=== PATIENT | male | born 1975 | race American Indian/Alaskan Native ===

== ENCOUNTER 2024-04-02 14:53 | Emergency (ER) | payer OTHER ==
[2024-04-02 15:28] LABS: BASOPHILS ABSOLUTE AUTO 0.1 K/mm3 (0.0-0.2); BASOPHILS PERCENT AUTO 0.8 % (0.0-1.0); EOSINOPHILS ABSOLUTE AUTO 0.5 K/mm3 (0.0-0.4); EOSINOPHILS PERCENT AUTO 6.7 % (0.0-6.0); HEMATOCRIT 38.7 % (42.0-52.0); HEMOGLOBIN 13.1 gm/dl (14.0-18.0); IMMATURE GRAN ABSOLUTE AUTO 0.01 K/mm3 (0.00-0.05); IMMATURE GRAN PERCENT AUTO 0.1 % (0.0-0.4); LYMPHOCYTES ABSOLUTE AUTO 2.2 K/mm3 (1.0-4.8); LYMPHOCYTES PERCENT AUTO 29.7 % (24.0-44.0); MEAN CORPUSCULAR HEMOGLOBIN 31.3 pg (28.0-32.0); MEAN CORPUSCULAR HGB CONC 33.9 g/dl (32.0-36.0); MEAN CORPUSCULAR VOLUME 92.6 fl (83.0-99.0); MEAN PLATELET VOLUME 9.9 fl (9.4-12.4); MONOCYTES ABSOLUTE AUTO 0.5 K/mm3 (0.0-0.8); MONOCYTES PERCENT AUTO 6.8 % (0.0-8.0); NEUTROPHILS ABSOLUTE AUTO 4.1 K/mm3 (1.8-7.7); NEUTROPHILS PERCENT AUTO 55.9 % (41.0-71.0); PLATELET COUNT,PLT 150 K/mm3 (150-400); RED BLOOD CELL COUNT 4.18 M/mm3 (4.52-5.90); WHITE BLOOD CELL COUNT,WBC 7.33 K/mm3 (3.9-11.3)
[2024-04-02 16:17] LABS: ALBUMIN 3.6 g/dl (3.4-5.0); ANION GAP 14.3 (5-15); BILIRUBIN TOTAL 0.4 mg/dL (0.2-1.0); CALCIUM 8.6 mg/dL (8.5-10.1); CREATININE 1.4 mg/dL (0.7-1.3); EST CRCL DRUG DOSING (CG) 65.18 mL/min; POTASSIUM,K 4.3 mEq/L (3.5-5.1); PROTEIN TOTAL,TP 7.2 g/dl (6.4-8.2)
[2024-04-02] MEDS: Sodium Chloride 0.9% 1,000 ML IV ONE ×2 (16:26→18:33)
[2024-04-02] MEDS: Insulin Regular, Human 100 Units/ML 10 ML Vial SUBCUT ONE (17:30)
[2024-04-02 17:39] LABS: HEMOGLOBIN A1C 7.9 %
[2024-04-02 18:25] LABS: APPEARANCE,URINE CLEAR (Clear); BILIRUBIN,URINE NEGATIVE (Negative); COLOR,URINE YELLOW (Yellow); GLUCOSE,URINE 2+ (Negative); KETONES,URINE NEGATIVE (Negative); LEUKOCYTE ESTERASE,URINE NEGATIVE (Negative); NITRITE,URINE NEGATIVE (Negative); OCCULT BLOOD,URINE NEGATIVE (Negative); PROTEIN,URINE NEGATIVE (Negative)
== END 2024-04-02 19:58 | disposition home or self-care (01) ==
LOC: JD.ED 14:53 → MERGE 14:53 → JD.ED 19:58
DX: R07.89 Other chest pain (principal); E11.65 Type 2 diabetes mellitus with hyperglycemia; Z79.890 Hormone replacement therapy; Z79.899 Other long term (current) drug therapy; Z79.84 Long term (current) use of oral hypoglycemic drugs; Z91.013 Allergy to seafood; Z88.8 Allergy status to other drugs, medicaments and biological substances
CPT/HCPCS: 36415; 71045; 80053; 81003; 82947; 83036; 83605; 83880; 83930; 84484; 85025; 93005; 96360; 96361; 99285; J1815; J7030; 93010

== ENCOUNTER 2025-01-10 15:26 | Emergency (ER) | payer MEDICAID, OTHER ==
[2025-01-10] MEDS: Ondansetron 4 MG Tab.DIS PO ONE (15:40)
[2025-01-10] MEDS: Acetaminophen/oxyCODONE 325-5 MG Tab PO ONE (15:41)
[2025-01-10] MEDS: Diphtheria,Pertussis(Acell),Tetanus Vaccine 0.5 ML Syringe IM ONE (15:42)
== END 2025-01-10 17:30 | disposition home or self-care (01) ==
LOC: JD.ED 15:26
DX: S97.02XA Crushing injury of left ankle, initial encounter (principal); E11.9 Type 2 diabetes mellitus without complications; Z90.49 Acquired absence of other specified parts of digestive tract; Z91.013 Allergy to seafood; Z88.8 Allergy status to other drugs, medicaments and biological substances; Z79.899 Other long term (current) drug therapy; Z79.890 Hormone replacement therapy; Z79.84 Long term (current) use of oral hypoglycemic drugs; V00.141A Fall from scooter (nonmotorized), initial encounter; Y93.89 Activity, other specified
CPT/HCPCS: 73590; 73600; 73620; 90471; 90715; 99284; A9270